=== PATIENT | female | born 1990 | race Caucasian/White ===

== ENCOUNTER → 2022-05-07 21:03 | Outpatient (REF) | payer BC, SELFPAY | LOC: CLAB 21:03 | PROVIDERS: ATTENDING PHYSICIAN Obstetrics & Gynecology | DX: Z34.03 Encounter for supervision of normal first pregnancy, third trimester (principal) | CPT/HCPCS: 87070; 87077; 87147 ==

== ENCOUNTER → 2024-01-28 06:58 | Outpatient (REF) | payer BC, SELFPAY | LOC: PNTC 06:58 | PROVIDERS: ATTENDING PHYSICIAN Student in an Organized Health Care Education/Training Program | DX: Z36.0 Encounter for antenatal screening for chromosomal anomalies (principal); Z36.82 Encounter for antenatal screening for nuchal translucency | CPT/HCPCS: 76801; 76813 ==

== ENCOUNTER → 2024-03-18 16:28 | Outpatient (REF) | payer BC, SELFPAY | LOC: PNTC 16:28 | PROVIDERS: ATTENDING PHYSICIAN Student in an Organized Health Care Education/Training Program | DX: O99.320 Drug use complicating pregnancy, unspecified trimester (principal) | CPT/HCPCS: 76811 ==

== ENCOUNTER → 2024-07-13 16:59 | Outpatient (REF) | payer BC, SELFPAY | LOC: PNTC 16:59 | PROVIDERS: ATTENDING PHYSICIAN Obstetrics & Gynecology | DX: Z34.90 Encounter for supervision of normal pregnancy, unspecified, unspecified trimester (principal) | CPT/HCPCS: 76816 ==

== ENCOUNTER 2024-08-03 04:53 | Inpatient (IN) | payer BC, SELFPAY ==
[2024-08-03 05:12] VITALS: BP 103/57; BMI 28.3
[2024-08-03] MEDS: LR 1000 IV (05:15)
[2024-08-03] MEDS: PENICILLIN 110 UNITS IV (05:27)
[2024-08-03 05:33] LABS: % Basophils 0.5 % (0-2); % Eosinophils 0.7 % (0-6); % Immature Granulocytes 0.3 % (0-0.5); % Lymphocytes 33.2 % (20.5-51.1); % Monocytes 4.9 % (1.7-9.3); % Neutrophils 60.4 % (42.2-75.2); Absolute Eosinophils 0.1 10^3/uL (0-0.7); Absolute Lymphocytes 2.4 10^3/uL (1.2-3.4); Absolute Monocytes 0.4 10^3/uL (0.1-0.6); Absolute Neutrophils 4.4 10^3/uL (1.4-6.5); Hematocrit 36.3 % (37.0-47.0); Hemoglobin 12.7 g/dL (12.0-16.0); Mean Corpuscular Hgb 31.4 pg (27.0-31.0); Mean Corpuscular Volume 89.6 fL (81.0-99.0); Mean Platelet Volume 10.2 fL (7.4-10.4); Nucleated Red Blood Cells % 0 %; Platelet Count 230 10^3/uL (130-400); Red Blood Cell Count 4.05 10^6/uL (4.20-5.40); Red Cell Dist. Width 13.1 % (11.5-14.5); White Blood Cell Count 7.3 10^3/uL (4.8-10.8)
[2024-08-03] MEDS: SUBLIMAZE 100 MCG EPIDURAL (05:50)
[2024-08-03] MEDS: FENTANYL/BUPIVACAINE 100 EPIDURAL (05:53)
[2024-08-03] MEDS: MOTRIN 600 MG PO ×2 (12:25→22:11)
[2024-08-03] MEDS: TYLENOL 650 MG PO (17:24)
[2024-08-03] MEDS: EFFEXOR XR 75 MG PO (22:09)
[2024-08-04] MEDS: MOTRIN 600 MG PO ×4 (04:38→23:35)
[2024-08-04] MEDS: TUMS CHEWABLE TABLET 400 MG PO ×3 (04:38→23:36)
[2024-08-04 04:49] LABS: Hematocrit 31.8 % (37.0-47.0); Hemoglobin 10.9 g/dL (12.0-16.0)
[2024-08-04] MEDS: COLACE 100 MG PO ×2 (09:15→20:03)
[2024-08-04] MEDS: FEOSOL 325 MG PO (09:15)
[2024-08-04 12:04] LABS: Syphilis/T. pallidum Ab Reflex Negative (Negative)
[2024-08-04] MEDS: EFFEXOR XR 75 MG PO (21:37)
[2024-08-04] MEDS: TYLENOL 650 MG PO (23:35)
[2024-08-05] MEDS: MOTRIN 600 MG PO (05:35)
[2024-08-05] MEDS: TYLENOL 650 MG PO (05:35)
[2024-08-05] MEDS: FEOSOL 325 MG PO (07:51)
[2024-08-05] MEDS: COLACE 100 MG PO (07:51)
== END 2024-08-05 11:18 | disposition home or self-care (01) | DRG 806 ==
LOC: LDRP 04:53
PROVIDERS: ADMITTING PHYSICIAN Student in an Organized Health Care Education/Training Program
PROC: 10907ZC Drainage of Amniotic Fluid, Therapeutic from Products of Conception, Via Natural or Artificial Opening (ICD-10-PCS; 2024-08-03)
PROC: 10E0XZZ Delivery of Products of Conception, External Approach (ICD-10-PCS; 2024-08-03)
PROC: 0KQM0ZZ Repair Perineum Muscle, Open Approach (ICD-10-PCS; 2024-08-03)
DX: O99.824 Streptococcus B carrier state complicating childbirth (principal); O98.32 Other infections with a predominantly sexual mode of transmission complicating childbirth; Z37.0 Single live birth; O99.344 Other mental disorders complicating childbirth; F32.A Depression, unspecified; Z3A.39 39 weeks gestation of pregnancy; O70.1 Second degree perineal laceration during delivery; A60.00 Herpesviral infection of urogenital system, unspecified; G43.909 Migraine, unspecified, not intractable, without status migrainosus
CPT/HCPCS: 36415; 85014; 85018; 85025; 86780; 86850; 86900; 86901